=== PATIENT | female | born 2000 | race Caucasian/White ===

== ENCOUNTER 2023-11-28 12:56 | Emergency (ER) | payer OTHER, SELFPAY ==
[2023-11-28 13:07] VITALS: BP 126/88
--- NOTE | 2023-11-28 13:39 | ED.GENMED ---
History of Present Illness
General
Chief Complaint: Urinary Symptoms
Time Seen by Provider: 11/28/23 13:23
Travel History
Have you had any contact with someone who has COVID-19?: No
Do you have any symptoms of coronavirus? Fever > 100 degrees, chills, cough, shortness of breath, sore throat, loss of taste or smell, muscle aches, or headache?: No
History of Present Illness
History of Present Illness:
23-year-old female with no significant past medical history presents to the emergency department for evaluation of lower abdominal discomfort, dysuria, vaginal discharge, and vaginal bleeding varying in severity over the past 4 to 5 days. Was seen
in urgent care on Monday of this week at which time a urinalysis was suspicious for UTI she was discharged on Macrobid. She also apparently had vaginal swabs but she has not heard these results as of yet. Denies any fevers or chills. Does report
mild low back pain. Denies any concern for sexual transmitted infection. Last menstrual cycle ended 11 days ago.
Review of Systems
Review of Systems
Allergies reviewed?: Yes
All Other Systems: ROS reviewed and negative except as documented in HPI and ROS
Phy Exam
Physical Exam
Physical Exam:
GEN: Well appearing, NAD, WDWN
HEENT: Oral mucosa moist, no scleral icterus
Cardiac: Regular rate
Lung: No respiratory distress, no tachypnea
Abdomen: Soft, nontender, no rigidity
MSK: No gross deformity or injuries
Skin: Good color, no pallor or jaundice, no rashes
Neuro: AO x3, moves all extremities freely
Psych: Calm, cooperative
Course
Orders/Labs/Results
Orders:
Orders
11/28/23 13:11
Test Result ONCE
11/28/23 13:27
CBC/With Diff [Complete Blood Count/With Diff] Urgent
CMP [Comprehensive Metabolic Panel] Urgent
HCG, Serum Qualitative Screen Urgent
Urinalysis Reflex To Culture Urgent
Date Specimen was Collected: 11/28/23
Time Specimen was Collected: 13:11
Urine Microscopic Reflex Cult Urgent
Urine Culture Urgent
MARTHA Source: U
Specimen Description:
Date Specimen was Collected: 11/28/23
Time Specimen was Collected: 13:11
11/28/23 13:39
Ibuprofen [Motrin] 600 mg PO NOW STA
Abnormal Lab Results
11/28/23
13:27
MCH 31.5 H pg
(27.0-31.0)
MPV 13.0 H fL
(7.4-10.4)
Absolute Lymphs (auto) 1.1 L 10^3/uL
(1.2-3.4)
Absolute Monos (auto) 1.0 H 10^3/uL
(0.1-0.6)
Lymphocytes % 12.8 L %
(20.5-51.1)
Monocytes % 11.8 H %
(1.7-9.3)
Creatinine 0.5 L mg/dL
(0.6-1.0)
Ur Occult Blood Reflex 4+ A
(Negative)
Urine Nitrite (Reflex) Positive A
(Negative)
Urine Bilirubin 3+ A
(Negative)
Urine Urobilinogen 4+ A
(Neg - 1+)
Leukocyte Esterase Rfl Trace A
(Negative)
Urine RBC 21-25 A /HPF
(0-2)
Urine WBC (Reflex) 70-80 A /HPF
(0-5)
Urine Bacteria (Reflex) Moderate A
(Negative)
Urine Albumin (Reflex) 2+ A
(Neg - Trace)
11/28/23 13:27
11/28/23 13:27
Vital Signs
Initial and Last Documented VS:
Initial Vital Signs
Temp Pulse Resp BP Pulse Ox
98.1 F 105 16 126/88 98
11/28/23 13:07 11/28/23 13:07 11/28/23 13:07 11/28/23 13:07 11/28/23 13:07
Last Documented Vital Signs
Temp Pulse Resp BP Pulse Ox
98.1 F 85 16 116/82 98
11/28/23 13:07 11/28/23 15:36 11/28/23 13:07 11/28/23 15:36 11/28/23 13:07
MDM/Problems Addressed
MDM/Problems Addressed:
Patient's urinalysis is certainly suggestive of persistent UTI. Although she is only taken 3 doses of Macrobid at this point would suggest this would be treatment failure and we will switch her to an alternative agent. I did contact the urgent
care in which she was seen 2 days ago however urine culture and vaginal swabs are still outstanding, do not see any utility in repeating these at this juncture. Certainly may have some component of vaginitis but she denies any concern for STI.
Clinically she is overall well. Discharged in stable condition
*Critical Care Note
Total Time (30-74mins, 75-104mins- exclusive of procedures): Not Applicable
ED Attending Note
-
Portions of this chart may have been created with voice recognition software.� Occasional wrong word or��sound alike� substitutions may have occurred due to the inherent limitations of voice recognition software.
Discharge Plan
Departure
Patient Disposition: Home (Routine Discharge)
Date of Disposition: 11/28/23
Time of Disposition: 14:58
Patient with high blood pressure during this ER visit?: No
Discharge Problem:
Abnormal uterine bleeding unrelated to menstrual cycle, Urinary tract infection
Instructions: Urinary Tract Infection, Adult (DC)
Prescriptions:
New
cephalexin 500 mg capsule
500 mg PO BID 7 Days Qty: 14 0RF
Referrals:
Remington Riggs DO [Family Provider] -
Activity Restrictions/Additional Instructions:
Stop the macrobid
Start taking cephalexin
The urgent care does not have your test results available yet, they will call you when available
If your vaginal bleeding does not improve, follow up with your [facility]
Interventions
Interventions:
*Risk Screen - Suicide Last Done: 11/28/23 14:23
*General Assessment Last Done: 11/28/23 14:23
*Neglect/Abuse Screening Last Done: 11/28/23 14:23
*Nursing Disposition Last Done: 11/28/23 15:36
ED-Female Genitourinary Assessment Last Done: 11/28/23 14:20
Discharge Date and Time
Discharge Date/Time: 11/28/23 15:36
[2023-11-28 13:46] LABS: HCG, Serum Qualitative Screen Negative
[2023-11-28 13:50] LABS: ALT (SGPT) 13 U/L (0-35); AST (SGOT) 20 U/L (14-36); Albumin 4.3 g/dl (3.5-5.0); Alkaline Phosphatase 63 U/L (38-126); Blood Urea Nitrogen 8 mg/dl (7-17); Calcium 8.8 mg/dl (8.4-10.2); Carbon Dioxide 22 mmol/L (22-30); Chloride 107 mmol/L (98-107); Glucose 92 mg/dl (70-99); Sodium 135 mmol/L (135-145); Total Bilirubin 0.5 mg/dl (0.2-1.3); eGFR > 60.00
[2023-11-28 13:54] LABS: Urine Albumin 2+ (Neg - Trace); Urine Bilirubin 3+ (Negative); Urine Character Very Cloudy (Clear); Urine Glucose Negative (Negative); Urine Ketone Negative (Negative); Urine Leukocyte Trace (Negative); Urine Nitrite Positive (Negative); Urine Occult Blood 4+ (Negative); Urine Urobilinogen 4+ (Neg - 1+)
[2023-11-28] MEDS: MOTRIN 600 MG PO (13:55)
[2023-11-28 13:57] LABS: Urine Color Red
[2023-11-28 14:02] LABS: % Basophils 0.2 % (0-2); % Eosinophils 0.9 % (0-6); % Immature Granulocytes 0.4 % (0-0.5); % Lymphocytes 12.8 % (20.5-51.1); % Monocytes 11.8 % (1.7-9.3); % Neutrophils 73.9 % (42.2-75.2); Absolute Eosinophils 0.1 10^3/uL (0-0.7); Absolute Lymphocytes 1.1 10^3/uL (1.2-3.4); Absolute Neutrophils 6.1 10^3/uL (1.4-6.5); Hematocrit 38.6 % (37.0-47.0); Hemoglobin 13.5 g/dL (12.0-16.0); Mean Corpuscular Hgb 31.5 pg (27.0-31.0); Mean Corpuscular Volume 90.2 fL (81.0-99.0); Nucleated Red Blood Cells % 0 %; Platelet Count 166 10^3/uL (130-400); Red Blood Cell Count 4.28 10^6/uL (4.20-5.40); Red Cell Dist. Width 12.9 % (11.5-14.5); White Blood Cell Count 8.2 10^3/uL (4.8-10.8)
[2023-11-28 14:26] LABS: Urine Squamous Cell >30 /LPF (Few)
[2023-11-28 14:27] LABS: Urine Bacteria Moderate (Negative); Urine White Cell 70-80 /HPF (0-5)
[2023-11-28 14:28] LABS: Urine Red Blood Cell 21-25 /HPF (0-2)
[2023-11-28 15:35] VITALS: BP 116/82
[2023-11-28 15:36] VITALS: BP 116/82
== END 2023-11-28 15:36 | disposition home or self-care (01) ==
LOC: EMR 12:56
PROVIDERS: EMERGENCY PHYSICIAN Emergency Medicine; FAMILY PHYSICIAN Family Medicine
DX: N39.0 Urinary tract infection, site not specified (principal); N93.9 Abnormal uterine and vaginal bleeding, unspecified
CPT/HCPCS: 99283; 80053; 81003; 81015; 84703; 85025; 87086

== ENCOUNTER → 2024-04-04 10:41 | Outpatient (REF) | payer OTHER, SELFPAY | LOC: HWRAD 10:41 | PROVIDERS: ATTENDING PHYSICIAN Physician Assistant | DX: R22.1 Localized swelling, mass and lump, neck (principal) | CPT/HCPCS: 76536 ==

== ENCOUNTER → 2024-04-15 10:54 | Outpatient (REF) | payer OTHER, SELFPAY | LOC: HWRAD 10:54 | PROVIDERS: FAMILY PHYSICIAN Family Medicine | DX: R59.0 Localized enlarged lymph nodes (principal); R93.89 Abnormal findings on diagnostic imaging of other specified body structures | CPT/HCPCS: 70491; Q9967 ==

== ENCOUNTER 2024-11-14 06:42 | Day surgery (SDC) | payer OTHER, SELFPAY ==
[2024-11-14] VITALS (9 sets, daily range): BP systolic 99–118; BP diastolic 54–75; BMI 27.8; BMI 27.9
[2024-11-14] MEDS: NORMOSOL-R/PLASMALYTE-A 1000 IV (09:30)
[2024-11-14] MEDS: TYLENOL 1000 MG PO (10:01)
== END 2024-11-14 14:23 | disposition home or self-care (01) ==
LOC: SDS 06:42
PROVIDERS: ATTENDING PHYSICIAN Otolaryngology
DX: R59.0 Localized enlarged lymph nodes (principal)
CPT/HCPCS: 21555; 88305; 88333; 88341; 88342; 88365